=== PATIENT | female | born 1935 | race Caucasian/White ===

== ENCOUNTER → 2016-06-10 | Outpatient (CLI) | payer MEDICARE, OTHER ==
[~2016-06-10] MED LIST: DELTASONE DPS10 MG PO; DEXAMETHASON2 MG PO; ELAVIL-DPS100 MG PO; FOSAMAX70 MG PO; LASIX40 MG PO; LOPID DPS600 MG PO; LOSARTAN-HCTZ1 EAC2 PO; METOPROLOL TART25 MG PO; MICRO-K DPS10 MEQ PO; NITROSTAT0.4 MG SL; OYSTER SHELL C500 MG PO; PEPCID DPS20 MG PO; VITAMIN B-12500 MCG PO; VITAMIN D2000 UNI1 PO; ZETIA10 MG PO
== END | disposition home or self-care (01) ==
LOC: RAD.S 05-20 09:00
DX: C34.11 Malignant neoplasm of upper lobe, right bronchus or lung (principal); C67.9 Malignant neoplasm of bladder, unspecified; I10 Essential (primary) hypertension; J98.11 Atelectasis

== ENCOUNTER 2016-07-20 05:50 | Inpatient (IN) | payer MEDICARE, OTHER ==
[~2016-07-20] VITALS: Ht 162.6 cm; Wt 65.0 kg
--- NOTE | ~2016-07-20 | DS ---
ADMIT: 07/20/2016 RM/LOC: 528 [facility] MR#: [id number] [facility]#: [id number] 2620 [facility] [address] [place], [place] [address] DOMO VELÁZQUEZ [address] [facility] [address] [place] [address] General Discharge Summary SEX: F AGE: 81 : 1935 ADMISSION DATE: 07/20/2016 DISCHARGE DATE: 07/23/2016 SERVICE: Neurosurgery. REASON FOR ADMISSION: 1. Brain tumor. 2. Lung cancer primary. PROCEDURES: Stereotactic craniotomy for resection of a left parietal metastasis. HOSPITAL COURSE: Ms. Torres tolerated her procedure well. Postoperatively, she was taken to the intensive care unit for close monitoring and care. Postop day #1, she was awake and alert. Her vital signs were stable. She had no vision changes. She was moving all extremities x4 with 5/5 strength. She was transferred out of the intensive care unit to the Med/Surg floor. She did work with Speech Therapy, Physical Therapy, and Occupational Therapy and tolerated this quite well. Postop day #2, she was awake and alert. She was moving all extremities x4 with 5/5 strength. Her vital signs were stable. Her incision was clean, dry, and intact. She continued to work with the therapies and tolerated this quite well. Postop day #3, her vital signs were stable. She was awake and alert and oriented x4. She was moving all extremities x4. Her incision was clean, dry, and intact. She was evaluated by the inpatient rehabilitation with a plan to return to her prior function of living status. On the day of discharge, she was deemed medically fit for transfer to the inpatient rehabilitation unit. DISCHARGE CONDITION: Good. MEDICATIONS: 1. Colace 100 mg p.o. b.i.d. 2. Elavil 100 mg p.o. at bedtime. 3. Hyzaar 50/12.5 p.o. daily. 4. Lopid 600 mg b.i.d. 5. Lopressor 25 mg b.i.d. 6. Micro-K 10 mEq daily. 7. Milk of magnesia 10 mL p.o. q.a.m. 8. MiraLAX 17 g p.o. daily. 9. Protonix 40 mg p.o. daily. 10.Senokot 1 tab p.o. b.i.d. 11.Zetia 10 mg p.o. daily. 12.Dulcolax 10 mg suppository rectally q.a.m. 13.NovoLog R sliding scale insulin before meals and at bedtime. If the blood sugar is 131 to 180, give 2 units; 181 to 240, 4 units; 241 to 300, 6 units; 301 to 350, 8 units, 351 to 400, 10 units and over 400, give 12 units and call the doctor. 14.Decadron 2 mg p.o. b.i.d. 15.Keppra 500 mg p.o. q.12. ADMIT: 07/20/2016 RM/LOC: 528 [facility] MR#: [id number] [address] [address] DOMO VELÁZQUEZ [address] [place] [id number] General Discharge Summary SEX: F AGE: 81 : 1935 16.Colace 100 mg p.o. b.i.d. p.r.n. 17.Hydrocodone 5/325, 1 p.o. q.4 hours p.r.n. 18.Maalox 30 mL p.o. q.6 hours p.r.n. 19.Tylenol 650 mg p.o. q.4 hours p.r.n. 20.Xanax 0.25 mg p.o. t.i.d. p.r.n. 21.Atrovent 2.5 mL inhalation q.4 hours p.r.n. 22.Proventil 2.5 mg inhalation q.4 hours p.r.n. 23.Nitrostat 0.4 mg sublingual q.5 minutes x3 p.r.n. DISCHARGE INSTRUCTIONS: Per Dr. Varela, she can have a regular diet. It is okay for her to have DVT chemoprophylaxis. She is to continue with Physical Therapy and Occupational Therapy. She may shower, she should use baby shampoo only on her hair. She should not use any other products on her hair. She should not lift anything greater than 50 pounds. She should be up and ambulating. She will call with any questions concerns including neurological worsening, signs or symptoms of infection, or any other issues. FOLLOWUP: She will follow up in the clinic in 2 weeks. DISPOSITION: She was discharged to the inpatient rehabilitation unit. Total [id number] time for the discharge planning care and coordination was 30 minutes. Lissy Melendez APRN / Cedric Varela MD / jamila JOB #: [id number] CC: Cedric Varela MD, Attending Physician Josh Falcon MD, Family Physician
--- NOTE | 2016-07-22 15:26 | OR ---
ADMIT: 07/20/2016 RM/LOC: 312 [facility] MR#: [id number] 2620 [facility] [address] [place], [place] [address] RYANN VELÁZQUEZAce Foy [address] [facility] [address] [place] [address] Operative/Delivery Room Report SEX: F AGE: 81 : 1935 SURGERY DATE: 07/20/2016 SURGEON: Cedric Varela MD PREOPERATIVE DIAGNOSIS: Visual loss from left parietal metastasis that is too large for stereotactic radiosurgery. POSTOPERATIVE DIAGNOSIS: Visual loss from left parietal metastasis that is too large for stereotactic radiosurgery. PROCEDURE: Stereotactic left-sided parieto-occipital craniotomy for resection of metastatic tumor with intraoperative microscopy with microsurgical dissection technique. IN HOME NANNY: None. DESCRIPTION: After gaining informed consent, the patient was taken to the operative theater, placed under general endotracheal anesthesia, she was then turned prone on a Demetrio table with Fran frame and in the Ronquillo head banquet waiter/waitress very cautiously. Her fiducialized calvarium was code registered with the [employer] and then time-out was utilized to ascertain the correct site and side of surgery as well as other pertinent patient historical information. Counts were obtained at the beginning and end of the case with no change betwixt the 2. Antibiotics were given within 1 hour of incision. The patient was prepped and draped in usual sterile fashion and a lazy sigmoid- shaped incision was taken up over the left-sided parietal bossing where the tumor had been marked out over top of the head preoperatively. Flaca clips were applied and self-retaining retractors were then placed. At this point, bur holes were drilled alongside the superior sagittal sinus as well as laterally. Once this was done, the dura was undermined and the craniotome was used to connect the amanda holes together with the exception of the area right alongside the superior sagittal sinus. This was drilled down with a 3-0 matchstick. Once all this was completed, the bone flap was elevated and epidural tack up stitches were placed circumferentially. The holes for a center epidural tack-ups were placed in the bone, and it was centrally tacked up at the end of the case. At this point, the microscope was brought into the field and attention was turned to intraoperative microscopy for microsurgical technique. The dura was opened and flapped towards the superior sagittal sinus and then tacked with 4-0 Nurolon, relatively normal-appearing brain was visualized. The superior parietal lobule was then utilized as a corticotomy was fashioned there, and attention was then turned to dissecting down discovering tumor. The tumor was very necrotic, but also very vascular, it bled profusely throughout the case. The tumor was soft and suctionable for most of it. Extreme caution was utilized while resecting this tumor, the tumor was suction aspirated back to more normal-appearing cerebral white matter. Initially some of the fluid that came out appeared to be CSF and quite possibly could have been, but no clear connection with the ventricle was noted. There was no further appearance of any tumor after suction aspirating ADMIT: 07/20/2016 RM/LOC: 312 [facility] MR#: [id number] [address] [address] DOMO VELÁZQUEZ [address] [place] [address] Operative/Delivery Room Report SEX: F AGE: 81 : 1935 back, this took a lengthy amount of time secondary to the bleeding and need for hemostasis throughout. Once this was completed, along the margins and at depth, I was able to visualize the entire area and did not visualize any thing that appeared to represent further remaining tumor. Once this was performed, pristine hemostasis was obtained very cautiously and then attention was turned to closure. The dura was closed with simple, interrupted 4-0 Nurolon with the bone flap then plated and placed back after epidurally tacking it up over top of DuraGen and Tisseel on top of the dura. At this point, the skin was closed with galeal 2-0 Vicryl and then locked running 3-0 nylon was used on the skin. COMPLICATIONS: None. SPECIMEN: Left parietal tumor for frozen section, appeared very malignant degenerated-appearing process, and further permanent specimen was sent as well. DISPOSITION: Extubated and taken to the neuro-intensive care unit moving all extremities. Cedric Varela MD/ jamila JOB #: [id number] CC: Cedric Varela, Attending Physician Josh Falcon, Family Physician
[2016-08-02] MEDS ORDERED: VITAMIN B-12500 MCG PO (10:20)
[2016-08-02] MEDS ORDERED: LOSARTAN-HCTZ1 EAC2 PO (10:20)
[2016-08-02] MEDS ORDERED: LOPID DPS600 MG PO (10:20)
[2016-08-02] MEDS ORDERED: METOPROLOL TART25 MG PO (10:21)
[2016-08-02] MEDS ORDERED: FOSAMAX70 MG PO (10:21)
[2016-08-02] MEDS ORDERED: VITAMIN D2000 UNI1 PO (10:21)
[2016-08-02] MEDS ORDERED: NITROSTAT0.4 MG SL (10:21)
[2016-08-02] MEDS ORDERED: OYSTER SHELL C500 MG PO (10:21)
[2016-08-02] MEDS ORDERED: ZETIA10 MG PO (10:21)
[2016-08-02] MEDS ORDERED: ELAVIL-DPS100 MG PO (10:22)
[2016-08-02] MEDS ORDERED: MICRO-K DPS10 MEQ PO (10:22)
[2016-08-02] MEDS ORDERED: DEXAMETHASON2 MG PO (10:22)
[2016-09-11] MEDS ORDERED: DELTASONE DPS10 MG PO (18:18)
[2016-09-11] MEDS ORDERED: PEPCID DPS20 MG PO (18:18)
[2016-09-11] MEDS ORDERED: MICRO-K DPS10 MEQ PO (18:18)
[2016-09-11] MEDS ORDERED: METOPROLOL TART25 MG PO (18:18)
[2016-09-11] MEDS ORDERED: LASIX40 MG PO (18:19)
== END 2016-07-23 11:06 | disposition short-term general hospital (02) | DRG 25 ==
LOC: WOR 05:50 → RAD.S 07:45 → EDSTATUS 07:45 → 3ICU 16:01 → 5MS 07-21 14:29
PROVIDERS: ADMIT Neurological Surgery
PROC: 00B70ZZ Excision of Cerebral Hemisphere, Open Approach (ICD-10-PCS; principal; 2016-07-20)
DX: C79.31 Secondary malignant neoplasm of brain (principal); G93.6 Cerebral edema; C34.90 Malignant neoplasm of unspecified part of unspecified bronchus or lung; Z95.1 Presence of aortocoronary bypass graft; F40.240 Claustrophobia; E78.00 Pure hypercholesterolemia, unspecified; H54.62 Unqualified visual loss, left eye, normal vision right eye; I10 Essential (primary) hypertension; I25.10 Atherosclerotic heart disease of native coronary artery without angina pectoris; M81.0 Age-related osteoporosis without current pathological fracture; I25.2 Old myocardial infarction; Z85.51 Personal history of malignant neoplasm of bladder; Z87.891 Personal history of nicotine dependence

== ENCOUNTER 2016-07-23 10:01 | Inpatient (IN) | payer MEDICARE, OTHER ==
[~2016-07-23] VITALS: Ht 162.6 cm; Wt 66.0 kg
[2016-08-02] MEDS ORDERED: VITAMIN B-12500 MCG PO (10:20)
[2016-08-02] MEDS ORDERED: LOPID DPS600 MG PO (10:20)
[2016-08-02] MEDS ORDERED: LOSARTAN-HCTZ1 EAC2 PO (10:20)
[2016-08-02] MEDS ORDERED: METOPROLOL TART25 MG PO (10:21)
[2016-08-02] MEDS ORDERED: OYSTER SHELL C500 MG PO (10:21)
[2016-08-02] MEDS ORDERED: NITROSTAT0.4 MG SL (10:21)
[2016-08-02] MEDS ORDERED: ZETIA10 MG PO (10:21)
[2016-08-02] MEDS ORDERED: VITAMIN D2000 UNI1 PO (10:21)
[2016-08-02] MEDS ORDERED: FOSAMAX70 MG PO (10:21)
[2016-08-02] MEDS ORDERED: DEXAMETHASON2 MG PO (10:22)
[2016-08-02] MEDS ORDERED: MICRO-K DPS10 MEQ PO (10:22)
[2016-08-02] MEDS ORDERED: ELAVIL-DPS100 MG PO (10:22)
--- NOTE | 2016-08-28 08:52 | DS ---
ADMIT: 07/23/2016 RM/LOC: 604 [facility] MR#: [id number] 2620 [facility] [address] [place], [place] [address] [place] [address] [facility] [address] [place] [address] General Discharge Summary SEX: F AGE: 81 : 1935 ADMISSION DATE: 07/23/2016 DISCHARGE DATE: 08/01/2016 DISCHARGE DIAGNOSIS: Brain dysfunction 02.1, nontraumatic, C79.31 secondary malignant neoplasm of brain, onset 07/20/2016, comorbid conditions, per initial H and P. Other diagnosis per hospital course blow. HOSPITAL COURSE: Please see my initial HPI for details prior to transfer to the area. 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 Pain and bowel regimen adjusted. Lovenox started for DVT prophylaxis. Protonix changed to Pepcid to decrease risk of C. diff. Senokot- S for constipation. Hydrocodone switched to OxyIR for pain. MiraLAX held for diarrhea. Lab was monitored regularly. Dietitian followed to optimize nutrition. Pharmacy followed to optimize medication management. PVRs were normal. B12 came back low normal. MMA was added to lab to check on sufficiency of B12. Hypophosphatemia replaced with K-Phos Neutral. B12 replaced with B12 intramuscular injections. Iron deficiency in the context of acute blood loss anemia replaced with Feosol and vitamin C. For better absorption, fecal occult blood was tested with bowel movements to check for GI bleeding. Milk of magnesia for constipation. Peripheral IV and IV medications discontinued on 07/24/2016, no longer necessary. Keppra started to tapered to discontinuation on 07/24/2016, as there was no history of seizure. MiraLAX discontinued. Accu-Cheks sliding scale insulin discontinued. 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 Lovenox discontinued. She was ambulating good enough distance daily to prevent DVT. Transferrin saturation was followed up on. Pepcid discontinued. B12 changed from IM to p.o. Polypharmacy addressed by discontinuing Glutose, milk of magnesia, OxyIR, Xanax, Atrovent, Proventil, glucagon, Nitrostat, and Micro-K on 07/29/2016. TEDs were discontinued. Feosol and vitamin C no longer ADMIT: 07/23/2016 RM/LOC: 604 [facility] MR#: [id number] [address] [address] DOMO VELÁZQUEZ [address] [place] [address] General Discharge Summary SEX: F AGE: 81 : 1935 necessary as iron came up to 42%. Hemoglobin remained low at 8.6, but stable and improving. The patient was medically stable at the time of discharge. Please see IRU interdisciplinary discharge summary for details regarding progress in therapy. DISCHARGE DISPOSITION: Home alone but support from boyfriend, Wesley. [employer] services given prior to discharge. provided transport upon discharge. Already had all equipment needed for home. DISCHARGE MEDICATIONS: Please see discharge med rec. FOLLOWUP: Dr. Cedric Varela on August 06, Dr. Josh Falcon on August 14, Dr. Jr Patino at a mutually acceptable time. Toni Jenkins MD/ jamila JOB #: [id number] CC:
[2016-09-11] MEDS ORDERED: DELTASONE DPS10 MG PO (18:18)
[2016-09-11] MEDS ORDERED: METOPROLOL TART25 MG PO (18:18)
[2016-09-11] MEDS ORDERED: MICRO-K DPS10 MEQ PO (18:18)
[2016-09-11] MEDS ORDERED: PEPCID DPS20 MG PO (18:18)
[2016-09-11] MEDS ORDERED: LASIX40 MG PO (18:19)
== END 2016-08-01 13:40 | disposition home or self-care (01) | DRG 949 ==
LOC: 6IRU 11:05
PROVIDERS: ADMIT Physical Medicine & Rehabilitation
DX: Z48.3 Aftercare following surgery for neoplasm (principal); D62 Acute posthemorrhagic anemia; C79.31 Secondary malignant neoplasm of brain; C79.11 Secondary malignant neoplasm of bladder; R41.4 Neurologic neglect syndrome; C34.90 Malignant neoplasm of unspecified part of unspecified bronchus or lung; E83.39 Other disorders of phosphorus metabolism; I25.10 Atherosclerotic heart disease of native coronary artery without angina pectoris; I10 Essential (primary) hypertension; E78.5 Hyperlipidemia, unspecified; I25.2 Old myocardial infarction; M81.0 Age-related osteoporosis without current pathological fracture; K59.00 Constipation, unspecified; H53.461 Homonymous bilateral field defects, right side; M62.81 Muscle weakness (generalized); E53.8 Deficiency of other specified B group vitamins; R26.2 Difficulty in walking, not elsewhere classified; E61.1 Iron deficiency; R03.1 Nonspecific low blood-pressure reading; E11.9 Type 2 diabetes mellitus without complications; T38.0X5A Adverse effect of glucocorticoids and synthetic analogues, initial encounter; Z87.891 Personal history of nicotine dependence; Z95.1 Presence of aortocoronary bypass graft; Z96.643 Presence of artificial hip joint, bilateral

== ENCOUNTER → 2016-08-12 | Outpatient (CLI) | payer MEDICARE, OTHER | END | disposition home or self-care (01) | LOC: RAD.S 12:30 | DX: C67.9 Malignant neoplasm of bladder, unspecified (principal); C34.11 Malignant neoplasm of upper lobe, right bronchus or lung; I10 Essential (primary) hypertension; G31.9 Degenerative disease of nervous system, unspecified; Z98.890 Other specified postprocedural states; I62.00 Nontraumatic subdural hemorrhage, unspecified; G93.89 Other specified disorders of brain ==